=== PATIENT | female | born 1960 | race Caucasian/White ===

== ENCOUNTER → 2020-02-28 | Outpatient (CLI) | payer OTHER ==
[~2020-02-28] MED LIST: ALLO300T PO; AMLO1CAP42 PO; CHOL10003 PO; COLC0.6T37 PO; GABA300C PO; MELO15TA24 PO; METF500T17 PO; TRIA1CAP3 PO; [UNRECOGNIZED DRUG - REMARK] PO
[2020-02-28 09:09] LABS: ALANINE AMINOTRANSFERASE 29 U/L (12-78); ALBUMIN 4.1 g/dL (3.4-5.0); ANION GAP 6 mmol/L (5-15); CALCIUM 9.7 mg/dL (8.5-10.1); CHLORIDE 105 mmol/L (98-107)
[2020-02-28 09:11] LABS: ALKALINE PHOSPHATASE 44 U/L (45-117); BILIRUBIN,TOTAL 0.9 mg/dL (0.2-1.0); CREATININE 1.02 mg/dL (0.55-1.02); TOTAL PROTEIN 7.1 g/dL (6.4-8.2)
== END | disposition home or self-care (01) ==
LOC: STAR 07:59
PROVIDERS: ATTEND Podiatrist Foot & Ankle Surgery
DX: Z01.818 Encounter for other preprocedural examination (principal); M20.20 Hallux rigidus, unspecified foot
CPT/HCPCS: 36415; 80053; 93005

== ENCOUNTER 2020-03-03 10:22 | Day surgery (SDC) | payer OTHER ==
[~2020-03-03] VITALS: Ht 175.3 cm; Wt 109.3 kg
[2020-03-03] MEDS ORDERED: LACTATED RINGERS 1,000 ML IV SCH (10:49)
[2020-03-03 10:56] VITALS: BP 120/87
[2020-03-03] MEDS ORDERED: CHLORHEXIDINE 15 ML UDC MM ONE (11:00)
[2020-03-03] MEDS ORDERED: LIDOCAINE-MPF 2% ,5ML ONE (11:52)
[2020-03-03] MEDS ORDERED: PROPOFOL 10 MG/ML, 20ML ONE (11:52)
[2020-03-03] MEDS ORDERED: FENTANYL PF 100 MCG/2ML ONE ×2 (11:52→14:23)
[2020-03-03] MEDS ORDERED: BUPIVACAINE/PF-EPI 0.5% 1:200K ONE (11:55)
[2020-03-03] MEDS ORDERED: LIDOCAINE-MPF 1%, 5ML ONE ×2 (11:57→12:52)
[2020-03-03] MEDS ORDERED: OXYcodone 5 MG/5 ML ORAL.SOL UDC PO PRN (12:00)
[2020-03-03] MEDS ORDERED: ONDANSETRON 2MG/ML, 2ML IVPush PRN (12:00)
[2020-03-03] MEDS ORDERED: ONDANSETRON 2MG/ML, 2ML ONE (12:33)
[2020-03-03] MEDS ORDERED: DEXAMETHASONE 4 MG/ML, 1ML ONE (12:33)
[2020-03-03] MEDS ORDERED: OXYcodone 5 MG/5 ML ORAL.SOL UDC ONE (14:23)
[2020-03-03] MEDS: FENTANYL PF 100 MCG/2ML IV PRN ×4 (14:25→14:55)
== END 2020-03-03 16:45 | disposition home or self-care (01) ==
LOC: OUT 10:22
PROVIDERS: ATTEND Podiatrist Foot & Ankle Surgery
DX: M20.22 Hallux rigidus, left foot (principal); Z11.59 Encounter for screening for other viral diseases; I10 Essential (primary) hypertension; E11.9 Type 2 diabetes mellitus without complications; M10.9 Gout, unspecified; E66.9 Obesity, unspecified; Z68.35 Body mass index [BMI] 35.0-35.9, adult; Z79.84 Long term (current) use of oral hypoglycemic drugs; Z79.1 Long term (current) use of non-steroidal anti-inflammatories (NSAID); Z79.891 Long term (current) use of opiate analgesic; Z79.899 Other long term (current) drug therapy; Z83.3 Family history of diabetes mellitus; Z80.9 Family history of malignant neoplasm, unspecified; Z83.511 Family history of glaucoma
CPT/HCPCS: 28291; 36415; 82962; 87635; C1713; C1776; J1100; J2405; J2704; J3010; J7120